=== PATIENT | male | born 1985 | race Caucasian/White ===

== ENCOUNTER 2023-04-04 12:24 | Emergency (ER) | payer BC, SELFPAY ==
[2023-04-04 12:29] VITALS: BP 118/78
--- NOTE | 2023-04-04 13:43 | ED.GENMED ---
History of Present Illness
General
Chief Complaint: Skin Surface Trauma
Source: patient
Exam Limitations: none
Time Seen by Provider: 04/04/23 12:56
Nursing documentation reviewed up to this point in time: agreed with
Travel History
Have you had any contact with someone who has COVID-19?: No
Do you have any symptoms of coronavirus? Fever > 100 degrees, chills, cough, shortness of breath, sore throat, loss of taste or smell, muscle aches, or headache?: No
History of Present Illness
History of Present Illness:
PT IS A 37 Y/O M with no sig pmh
here with scalp laceration x 2 after trippeing over something and hitting head on the counter in his house. he is having home renovations and the counters are not finished yet. he cut his scalp on sharp corner
no LOC, no headache, no vomiting, ,no confusion, no dazed feeling
pt has had concussions before and denies having concussivve symptoms
incident occurred 2 hours ago.
Past History
Past History
ED Past Medical History: None
ED Past Surgical History: None
Social History
Tobacco: Non-smoker
Alcohol: Occasional
Drug: None
Personal:
Living: with family
Employment: Employed
Review of Systems
Review of Systems
Allergies reviewed?: Yes
All Other Systems: Not applicable
Phy Exam
Physical Exam
Physical Exam:
GENERAL: Alert , in no apparent distress
HEAD: scalp laceration x 2 right frontal scalp in hairline and superior forehead
no activ bleeding
no significant hematoma
1 measures 4 cm, the other is 2-1/2 cm
NECK: no midline tenderness, active ROM intact, no paraspinal muscle tenderness;
EYE: pupils equal and reactive, EOMs intact.
ENT: o/p clr, mmm. no hemotympanum
CARDIAC: Regular rate and rhythm, no edema
LUNGS: Clear breath sounds bilaterally, no acute respiratory distress, no wheezes/rales/rhonchi
ABDOMEN: Soft, without focal tenderness, no r/g, no cvat
NEUROLOGICAL: Alert and oriented, no focal neuro deficits, CN intact, 5/5 strength, sensation intact
SKIN: Warm and dry,
MUSCULOSKELETAL: No edema, well perfused.
PSYCH: Normal and appropriate interaction.
Course
Vital Signs
Initial and Last Documented VS:
Initial Vital Signs
Temp Pulse Resp BP Pulse Ox
97.9 F 59 16 118/78 99
04/04/23 12:04/04/23 12:04/04/23 12:04/04/23 12:04/04/23 12:29
Last Documented Vital Signs
Temp Pulse Resp BP Pulse Ox
97.9 F 59 16 118/78 99
04/04/23 12:04/04/23 12:04/04/23 12:04/04/23 12:04/04/23 12:29
Procedures
Laceration Closure
Right Scalp:
Size of Wound in cm: 6
Description of Wound Edges: ragged and flap-well vascularized
Preparation: cleaned with saline
Anesthesia: 1% Lidocaine with epi
Revision/Debridement: routine- no revision
Wound exploration: explored to base- no FB
Type of Closure: single layer closure
Skin Closure Material: 5-0 prolene
Number of sutures: 9
MDM/Problems Addressed
Differential Diagnosis Includes:
head injury, laceration, concussion
MDM/Problems Addressed:
37-year-old male with no medical problems with right scalp laceration after he tripped into a corner of his countertop is being remodeled in his kitchen. He has 2 lacerations to his scalp, no signs of head injury, no loss of consciousness, no
vomiting or confusion, dazed or dizziness feeling. Patient had 2 scalp wounds that were irrigated and closed with sutures. Tetanus is updated already. DC home, suture removal in 5 to 7 days
*Critical Care Note
Total Time (30-74mins, 75-104mins- exclusive of procedures): Not Applicable
ED Attending Note
-
Portions of this chart may have been created with voice recognition software.� Occasional wrong word or��sound alike� substitutions may have occurred due to the inherent limitations of voice recognition software.
Discharge Plan
Departure
Patient Disposition: Home (Routine Discharge)
Date of Disposition: 04/04/23
Time of Disposition: 14:20
Patient with high blood pressure during this ER visit?: No
Condition: Fair
Covid-19: Not Applicable
Discharge Problem:
Laceration of scalp, Minor head injury
Instructions: Laceration Repair With Stitches (DC), Minor Head Injury (DC)
Referrals:
NONE,* [Family Provider] -
Activity Restrictions/Additional Instructions:
KEEP THE WOUND CLEAN AND DRY FOR 24 HOURS
AFTER THAT YOU CAN GET IT WET IN THE BATH/SHOWER ONCE A DAY ( YOU CAN USE MIMLD SHAMPOO OR SOAP) AND MAKE SURE IT IS CLEAN AND THERE IS NO DRIED BLOOD ON THE STITCHES
APPLY NEOSPORIN AND A BANDAID
THE STITCHES NEED TO BE REMOVED IN ABOUT 5-7 DAYS, SEE YOUR DOCTOR FOR THIS.
THE LAST DAY BEFORE STITCHES OUT, NO OINTMENT, LEAVE OPEN TO AIR
WATCH FOR SIGNS OF INFECTION AND RETURN NEEDED FOR PAIN, SWELLING, REDNESS, DRAINAGE, BLEEDING.
MOTRIN NEEDED FOR PAIN.
Interventions
Interventions:
*Risk Screen - Suicide Last Done: 04/04/23 12:29
*Neglect/Abuse Screening Last Done: 04/04/23 12:29
*Nursing Disposition Last Done: 04/04/23 14:47
ED-Skin Assessment Last Done: 04/04/23 14:06
Discharge Date and Time
Discharge Date/Time: 04/04/23 14:48
== END 2023-04-04 14:48 | disposition home or self-care (01) ==
LOC: EMR 12:24
PROVIDERS: EMERGENCY PHYSICIAN Emergency Medicine
DX: S01.01XA Laceration without foreign body of scalp, initial encounter (principal); S09.90XA Unspecified injury of head, initial encounter; W18.00XA Striking against unspecified object with subsequent fall, initial encounter; Y92.009 Unspecified place in unspecified non-institutional (private) residence as the place of occurrence of the external cause; Z87.820 Personal history of traumatic brain injury
CPT/HCPCS: 99282; 12002